=== PATIENT | female | born 1990 | race African-American/Black ===

== ENCOUNTER 2016-11-28 15:47 | Emergency (ER) | payer SELFPAY ==
[~2016-11-28] VITALS: Ht 152.4 cm; Wt 70.1 kg
[~2016-11-28 15:47] MED LIST: ALBUTEROL SULF8.5 GM IH; BACTRIM,SEPT1 TABLET PO; CLONIDINE HCL0.1 MG PO; DOXYCYCLINE HY100 MG PO; FLAGYL500 MG PO; FLEXERIL10 MG PO; IBUPROFEN800 MG PO; KEFLEX500 MG PO; LAMOTRIGINE200 MG PO; LEVAQUIN500 MG PO; LYRICA50 MG PO; MEDROL DOSEPAK4 MG PO; METFORMIN HCL500 MG PO; MOTRIN600 MG PO; MOTRIN800 MG PO; NAPROXEN500 MG PO; NORCO 5/3251 TABLET PO; PERCOCET 5/31 TABLET PO; PROAIR HFA8.5 GM IH; SEROQUEL400 MG PO; TRAMADOL HCL50 MG PO; ZOFRAN4 MG PO
[2016-11-28 18:47] LABS: CREATINE KINASE 40 IU/L (1-294)
[2016-11-28 19:21] LABS: EOSINOPHIL (%) 0 % (0-5); HEMATOCRIT 36.6 % (36.0-46.0); IMMATURE GRANULOCYTE (%) 0.3 % (0.0-0.7); IMMATURE GRANULOCYTE COUNT 0.6 K/uL; LYMPHOCYTE COUNT 0.9 K/uL (1.0-2.8); MCH 31.7 PG (29.0-34.0); MCHC 34.2 G/DL (30.0-36.0); MCV 92.9 FL (83-99); MEAN PLAT.VOLUME 10.7 uM^3 (9.5-12.4); MONOCYTE (%) 2.4 % (3-12); MONOCYTE COUNT 0.5 K/uL (0-0.8); NEUTROPHIL (%) 93.2 % (45-76); NEUTROPHIL COUNT 19.1 K/uL (1.8-6.4); PLATELET COUNT 281 K/uL (156-360); RBC DIS.WIDTH-CV 12.5 % (11.8-14.6); RBC DIS.WIDTH-SD 40.9 % (39-53); RED BLOOD COUNT 3.94 M/uL (3.80-5.20); WHITE BLOOD COUNT 20.5 K/uL (4.1-10.2)
[2016-11-28 19:36] LABS: C-REACTIVE PROTEIN 107.7 MG/L (0-10); SAMPLE HEMOLYSIS CHECK 0; SAMPLE ICTERIC CHECK 0; SAMPLE LIPEMIA CHECK 0
[2016-11-28 19:47] LABS: ALKALINE PHOSPHATASE 49 IU/L (3-129); ANION GAP 10 MEQ/L (2-14); CHLORIDE 103 MEQ/L (99-109); GFR ESTIMATE (CALCULATED) > 59 mL/min/; GLUCOSE 110 mg/dL (70-99); POTASSIUM 3.1 MEQ/L (3.7-5.4); SODIUM 136 MEQ/L (136-147); UREA NITROGEN (BUN) 6 mg/dL (9-23)
[2016-11-28 20:10] LABS: INTERNAL CONTROL VALID? YES
[2016-11-28 20:24] LABS: ADD MIUA? YES; BILIRUBIN NEGATIVE; BLOOD TRACE; COLOR YELLOW ((YELLOW)); GLUCOSE (STRIP) NEGATIVE; KETONES 15; LEUKOCYTES LARGE; NITRITE NEGATIVE; PROTEIN (STRIP) TRACE; UROBILINOGEN 0.2 MG/DL (0.2-1.0)
[2016-11-28] MEDS ORDERED: PYRIDIUM100 MG PO (20:24)
[2016-11-28] MEDS ORDERED: TRAMADOL HCL50 MG PO (20:24)
[2016-11-28] MEDS ORDERED: MACROBID100 MG PO (20:29)
[2016-11-28 20:49] LABS: RED BLOOD CELLS 0-5 /HPF (0-5)
[2016-11-28 20:55] LABS: BACTERIA 2+ /HPF; CASTS NONE SEEN /LPF; CRYSTALS NONE SEEN; EPITHELIAL CELLS 2+ /HPF; MUCUS 3+ /LPF; UCUL ADDED? YES; WHITE BLOOD CELLS 30-40 /HPF (0-5)
[2016-11-28 21:24] VITALS: BP 121/59
== END 2016-11-28 21:29 | disposition home or self-care (01) ==
LOC: EME → EDBD 15:47 → EME 21:29
PROVIDERS: Nurse Practitioner Family
DX: N39.0 Urinary tract infection, site not specified (principal); R10.30 Lower abdominal pain, unspecified; M54.9 Dorsalgia, unspecified; D72.829 Elevated white blood cell count, unspecified; E87.6 Hypokalemia; F17.210 Nicotine dependence, cigarettes, uncomplicated; J45.909 Unspecified asthma, uncomplicated
CPT/HCPCS: 71100; 74020; 80048; 80053; 81003; 82550; 83880; 84703; 85025; 86140; 87086; 93005; 99281; 99285; J1885